=== PATIENT | male | born 1960 | race Caucasian/White ===

== ENCOUNTER 2017-10-01 18:48 | Emergency (ER) | payer BC, OTHER ==
[2017-10-01 18:59] VITALS: O2SAT 98
[2017-10-01] MEDS ORDERED: Sodium Chloride 0.9% 1000 ML 1,000 ML IV STA (19:09)
[2017-10-01] MEDS ORDERED: TORAdol 30 mg Injection IV ONE (19:09)
--- NOTE | 2017-10-01 19:09 | ERPHSYRPT ---
- History of Present Illness Time Seen by Provider: 10/01/17 19:06 Source: patient Exam Limitations: no limitations Patient Subjective Stated Complaint: Pt states "I am having horrible side pain. It hurt in my right testicle a little bit as well and my right back." Triage Nursing Assessment: Pt alert and oriented X 3, skin pwd. pt ambulates with an upright steady gait, able to speak in clear full sentences. Pt holding his right side, unable to sit still on the bed. Physician History: 57-year-old white male arrives with complaint of pain in his right flank radiating to his right groin symptoms since noon today. He does state that he had some dysuria no hematuria no nausea no vomiting. Past medical history is negative. Past surgical history is colonoscopy. Social history denies tobacco alcohol or illicit drug use. Timing/Duration: today Severity: moderate Modifying Factors: Improves With: nothing Associated Symptoms: abdominal pain (right lateral abdominal pain), No nausea, No vomiting, No shortness of breath, No heartburn, No diaphoresis, No cough, No chills, No chest pain, No fever, No headaches, No loss of appetite, No malaise, No rash, No syncope, No seizure Allergies/Adverse Reactions: No Known Drug Allergies Allergy (Verified 10/01/17 18:59) Hx Tetanus, Diphtheria Vaccination/Date Given: No Hx Influenza Vaccination/Date Given: No Hx Pneumococcal Vaccination/Date Given: No Immunizations Up to Date: Yes - Review of Systems Constitutional: No Fever, No Chills Eyes: No Symptoms Ears, Nose, & Throat: No Symptoms Respiratory: No Cough, No Dyspnea Cardiac: No Chest Pain, No Edema, No Syncope Abdominal/Gastrointestinal: Abdominal Pain (right lower abdominal pain) Genitourinary Symptoms: Dysuria, Flank Pain (Right flank pain), Testicle Pain Musculoskeletal: No Back Pain, No Neck Pain Skin: No Rash Neurological: No Dizziness, No Focal Weakness, No Sensory Changes Psychological: No Symptoms Endocrine: No Symptoms All Other Systems: Reviewed and Negative - Past Medical History Pertinent Past Medical History: No Neurological History: No Pertinent History ENT History: No Pertinent History Cardiac History: No Pertinent History Respiratory History: No Pertinent History Endocrine Medical History: No Pertinent History Musculoskeletal History: No Pertinent History GI Medical History: No Pertinent History History: No Pertinent History Psycho-Social History: No Pertinent History Male Reproductive Disorders: No Pertinent History - Past Surgical History Past Surgical History: No Neuro Surgical History: No Pertinent History Cardiac: No Pertinent History Respiratory: No Pertinent History Gastrointestinal: No Pertinent History Genitourinary: No Pertinent History Musculoskeletal: No Pertinent History Male Surgical History: No Pertinent History - Social History Smoking Status: Never smoker Exposure to second hand smoke: No Drug Use: none Patient Lives Alone: Yes - Nursing Vital Signs Nursing Vital Signs: Initial Vital Signs Temperature 98.0 F 10/01/17 18:54 Pulse Rate 66 10/01/17 18:54 Respiratory Rate 18 10/01/17 18:54 Blood Pressure 164/95 10/01/17 18:54 O2 Sat by Pulse Oximetry 98 10/01/17 18:54 Pain Scale Pain Intensity 4 - Physical Exam General Appearance: mild distress Eye Exam: PERRL/EOMI, eyes nml inspection Ears, Nose, Throat Exam: normal ENT inspection, TMs normal, pharynx normal, moist mucous membranes Neck Exam: normal inspection, non-tender, supple, full range of motion Respiratory Exam: normal breath sounds, lungs clear, No respiratory distress Cardiovascular Exam: regular rate/rhythm, normal heart sounds, normal peripheral pulses Gastrointestinal/Abdomen Exam: soft, normal bowel sounds, other (mild right lateral abdominal pian) Back Exam: CVA tenderness (Right flank tenderness) Extremity Exam: normal inspection, normal range of motion, pelvis stable Neurologic Exam: alert, oriented x 3, cooperative, creel clerk II-XII nml as tested, normal mood/affect, nml cerebellar function, nml station & gait, sensation nml, No motor deficits Skin Exam: normal color, warm, dry, No rash Lymphatic Exam: No adenopathy SpO2 Interpretation: normal (98%) SpO2: 98 Oxygen Delivery: Room Air - Course Nursing assessment & vital signs reviewed: Yes - CT Exams Abdomen/Pelvis CT Interpretation: Discussed w/radiologist (CT abdomen and pelvis: No comparisons. 2-3 cm posterior urinary bladder calculus with mild right sided hydronephrosis and minimal hydroureter from passage calculus. Additional 2-3 mm nonobstructing left renal calculus mild fatty liver and 14 cm splenomegaly) Ordered Tests: Active Orders 24 hr Category Date Time Status IV Insertion STAT Care 10/01/17 19:09 Active ABDOMEN AND PELVIS W/0 CONTRAS [CT] Stat Exams 10/01/17 19:09 Taken AMYLASE Stat Lab 10/01/17 19:30 Completed CBC W DIFF Stat Lab 10/01/17 19:30 Completed CMP Stat Lab 10/01/17 19:30 Completed LIPASE Stat Lab 10/01/17 19:30 Completed UA W/ MICROSCOPIC Stat Lab 10/01/17 20:19 Completed Medication Summary Discontinued Medications Generic Name Dose Route Start Last Admin Trade Name Ulises PRN Reason Stop Dose Admin Sodium Chloride 1,000 mls @ 999 mls/hr 10/01/17 19:09 10/01/17 19:37 Sodium Chloride 0.9% 1000 Ml IV 10/01/17 20:09 999 mls/hr .Q1H1M STA Administration Sodium Chloride Confirm 10/01/17 19:34 Sodium Chloride 0.9% 1000 Ml Administered 10/01/17 19:35 Dose 1,000 mls @ ud .ROUTE .STK-MED ONE Ketorolac Tromethamine 30 mg 10/01/17 19:09 10/01/17 19:37 Toradol 30 Mg Injection IV 10/01/17 19:10 30 mg STAT ONE Administration Ketorolac Tromethamine Confirm 10/01/17 19:34 Toradol 30 Mg Injection Administered 10/01/17 19:35 Dose 30 mg .ROUTE .STK-MED ONE Morphine Sulfate 4 mg 10/01/17 20:14 10/01/17 20:26 Morphine Sulfate 4 Mg Inj IV 10/01/17 20:15 4 mg STAT ONE Administration Morphine Sulfate Confirm 10/01/17 20:24 Morphine Sulfate 4 Mg Inj Administered 10/01/17 20:25 Dose 4 mg .ROUTE .STK-MED ONE Ondansetron HCl 4 mg 10/01/17 20:14 10/01/17 20:26 Zofran 4 Mg/2 Ml Vial IV 10/01/17 20:15 4 mg STAT ONE Administration Ondansetron HCl Confirm 10/01/17 20:24 Zofran 4 Mg/2 Ml Vial Administered 10/01/17 20:25 Dose 4 mg .ROUTE .STK-MED ONE Lab/Rad Data: Laboratory Result Diagrams 10/01/17 19:30 10/01/17 19:30 Laboratory Results 10/01/17 10/01/17 10/01/17 Range/Units 20:19 19:30 19:30 WBC 9.8 (4.0-10.5) K/mm3 RBC 5.45 (4.1-5.6) M/mm3 Hgb 16.2 (12.5-18.0) gm/dl Hct 46.7 (42-50) % MCV 85.7 (78-100) fl MCH 29.7 (26-32) pg MCHC 34.7 (32-36) g/dl RDW 13.8 (11.5-14.0) % Plt Count 218 (150-450) K/mm3 MPV 10.8 H (6-9.5) fl Gran % 78.4 H (36.0-66.0) % Eos # (Auto) 0.06 (0-0.5) Absolute Lymphs (auto) 1.32 (1.0-4.6) Absolute Monos (auto) 0.71 (0.0-1.3) Lymphocytes % 13.5 L (24.0-44.0) % Monocytes % 7.2 (0.0-12.0) % Eosinophils % 0.6 (0.00-5.0) % Basophils % 0.3 (0.0-0.4) % Absolute Granulocytes 7.69 H (1.4-6.9) Basophils # 0.03 (0-0.4) Sodium 138 (137-145) mmol/L Potassium 4.6 (3.5-5.1) mmol/L Chloride 103 (98-107) mmol/L Carbon Dioxide 26 (22-30) mmol/L Anion Gap 13.3 (5-15) MEQ/L BUN 12 (9-20) mg/dL Creatinine 0.78 (0.66-1.25) mg/dL Estimated GFR > 60.0 ML/MIN Glucose 130 H (74-106) mg/dL Calcium 9.6 (8.4-10.2) mg/dL Total Bilirubin 0.50 (0.2-1.3) mg/dL AST 23 (17-59) U/L ALT 48 (0-50) U/L Alkaline Phosphatase 91 (38-126) U/L Serum Total Protein 7.6 (6.3-8.2) g/dL Albumin 4.5 (3.5-5.0) g/dL Amylase 53 (30-110) U/L Lipase 27 (23-300) U/L Ur Collection Type VOID Urine Color YELLOW (YELLOW) Urine Appearance CLEAR (CLEAR) Urine pH 6.5 (5-6) Ur Specific [place] 1.015 (1.005-1.025) Urine Protein NEGATIVE (Negative) Urine Ketones NEGATIVE (NEGATIVE) Urine Blood 50 (0-5) Yun[place]/ul Urine Nitrite NEGATIVE (NEGATIVE) Urine Bilirubin NEGATIVE (NEGATIVE) Urine Urobilinogen NORMAL (0-1) mg/dL Ur Leukocyte Esterase NEGATIVE (NEGATIVE) Urine Microscopic RBC 5-10 (0-2) /HPF Urine Bacteria RARE (NEGATIVE) /HPF Urine Mucus SLIGHT (NEGATIVE) /HPF Urine Culture Reflexed NO (NO) Urine Glucose NEGATIVE (NEGATIVE) mg/dL Specimen Received 10/01/172024 - Progress Progress: improved Progress Note: 10/01/17 20:51 This is a 57-year-old white male with complaint of right flank right lower quadrant abdominal pain symptoms all day patient noted to have a 2-3 mm right posterior urinary bladder calculus with mild right-sided hydronephrosis and minimal hydroureter from recent passage calculus also with additional 2-3 mm nonobstructing left renal calculus mild fatty liver 14 cm splenomegaly Patient markedly improved after Toradol IV normal saline and morphine Will go ahead and release patient Will write for [place] for pain plenty of fluids strain urine, follow-up with Dr. Craig. Patient with splenomegaly will tell him no contact activity. . - Departure Time of Disposition: 20:53 Departure Disposition: Home Clinical Impression: Left flank pain, Splenomegaly Urolithiasis Qualifiers: Urinary calculus location: lower urinary tract Qualified Code(s): N21.9 - Calculus of lower urinary tract, unspecified Condition: Fair Critical Care Time: No Referrals: MANI VALDEZ [Primary Care Provider] - Instructions: Kidney Stones (DC) Additional Instructions: Return home. Plenty of fluids. [place] as prescribed. Strain all urine. Your spleen is somewhat enlarged no contact activities i.e. football wrestling. Follow-up with Dr. Craig. Return for acute distress or for severe symptoms. Prescriptions: Hydrocodone/Acetaminophen [[place] 5-325 Tablet] 1 tab PO Q4-6HPRN PRN #12 tablet MDD 6 tablets PRN Reason: Pain
[2017-10-01] MEDS ORDERED: Sodium Chloride 0.9% 1000 ML 1,000 ML ONE (19:34)
[2017-10-01] MEDS ORDERED: TORAdol 30 mg Injection ONE (19:34)
[2017-10-01 19:53] LABS: BASOPHIL % 0.3 % (0.0-0.4); Basophil (Absolute #) 0.03 (0-0.4); Eosinophil % 0.6 % (0.00-5.0); Eosinophil (Absolute #) 0.06 (0-0.5); Granulocyte Absolute (ANC) 7.69 (1.4-6.9); Granulocytes % 78.4 % (36.0-66.0); Hematocrit 46.7 % (42-50); Hemoglobin 16.2 gm/dl (12.5-18.0); Lymphocyte (Absolute #) 1.32 (1.0-4.6); Lymphocytes % 13.5 % (24.0-44.0); Mean Cell Volume 85.7 fl (78-100); Mean Corpuscular Hemoglobin 29.7 pg (26-32); Mean Corpuscular Hgb Concent. 34.7 g/dl (32-36); Mean Platelet Volume 10.8 fl (6-9.5); Monocyte (Absolute #) 0.71 (0.0-1.3); Monocytes % 7.2 % (0.0-12.0); Platelet Count 218 K/mm3 (150-450); Red Blood Count 5.45 M/mm3 (4.1-5.6); Red Cell Distribution Width 13.8 % (11.5-14.0); White Blood Count 9.8 K/mm3 (4.0-10.5)
[2017-10-01 19:59] LABS: ALBUMIN 4.5 g/dL (3.5-5.0); ALKALINE PHOSPHATASE 91 U/L (38-126); AMYLASE 53 U/L (30-110); ANION GAP 13.3 MEQ/L (5-15); BLOOD UREA NITROGEN 12 mg/dL (9-20); CHLORIDE 103 mmol/L (98-107); Calcium 9.6 mg/dL (8.4-10.2); Carbon Dioxide 26 mmol/L (22-30); Creatinine 1 0.78 mg/dL (0.66-1.25); Glucose 130 mg/dL (74-106); LIPASE 27 U/L (23-300); Potassium 4.6 mmol/L (3.5-5.1); SGOT/AST 23 U/L (17-59); SGPT/ALT 48 U/L (0-50); SODIUM 138 mmol/L (137-145); Total Protein 7.6 g/dL (6.3-8.2)
[2017-10-01] MEDS ORDERED: Zofran 4 MG/2 ML VIAL IV ONE (20:14)
[2017-10-01] MEDS ORDERED: MORPHINE SULFATE 4 MG INJ IV ONE (20:14)
[2017-10-01] MEDS ORDERED: Zofran 4 MG/2 ML VIAL ONE (20:24)
[2017-10-01] MEDS ORDERED: MORPHINE SULFATE 4 MG INJ ONE (20:24)
[2017-10-01 20:29] LABS: Appearance CLEAR (CLEAR); Bilirubin NEGATIVE (NEGATIVE); Blood 50 Ery/ul (0-5); Glucose NEGATIVE (NEGATIVE); Ketones NEGATIVE (NEGATIVE); Leukocyte Esterase NEGATIVE (NEGATIVE); Nitrite NEGATIVE (NEGATIVE); Ph 6.5 (5-6); Protein,Urine Dip NEGATIVE (Negative); Specific Gravity 1.015 (1.005-1.025); Urobilinogen NORMAL mg/dL (0-1)
[2017-10-01 20:47] LABS: Bacteria RARE /HPF (NEGATIVE); Mucus SLIGHT /HPF (NEGATIVE)
[2017-10-01 21:12] VITALS: BP 134/78; PULSE 65
--- NOTE | 2017-10-02 08:36 | XRAY ---
Indication: Right flank pain. Multiple contiguous axial images obtained through the abdomen and pelvis without contrast using renal stone protocol. Comparison: None Lung bases demonstrates left infrahilar and left posterior calcified granulomas. No infiltrate or effusion. Heart is not enlarged. 2-3 mm calculus seen in the posterior right urinary bladder. Right kidney is mildly hydronephrotic and right ureter is slightly prominent consistent with recent passage of said calculus. Additional nonobstructing left renal micro-calculus. Noncontrasted stomach and bowel loops appear nonobstructed. Normal appendix. No free fluid/air. Mild fatty liver, calcified splenic granulomas, and 14 cm splenomegaly. Remaining liver, gallbladder, pancreas, spleen, adrenal glands, kidneys, ureters, and bladder appear unremarkable for noncontrast exam. Mild aortoiliac calcifications without AAA. Osseous structures intact with mild degenerative changes throughout the spine greatest at the L4-L5 level. Tiny fatty umbilical and left inguinal hernias. 2 cm sebaceous cyst posterior to the T11-T12 level. Impression: 1. 2-3 mm urinary bladder calculus with mild right hydronephrosis and minimal hydroureter. Nonobstructing left renal micro-calculus. 2. Incidental fatty liver, splenomegaly, fatty umbilical hernia, fatty left inguinal hernia, lower back sebaceous cyst, and evidence for old granulomatous disease. CT DI 34.71
== END 2017-10-01 21:12 | disposition home or self-care (01) ==
LOC: ED 18:48
DX: N13.2 Hydronephrosis with renal and ureteral calculous obstruction (principal); R10.31 Right lower quadrant pain; R16.1 Splenomegaly, not elsewhere classified
CPT/HCPCS: 36000; 36415; 74176; 80053; 81000; 82150; 83690; 85025; 96360; 96374; 96375; 99284; J1885; J2270; J2405

== ENCOUNTER 2019-11-19 14:19 | Emergency (ER) | payer OTHER ==
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
[2019-11-19 15:24] VITALS: BP 140/80; PULSE 72; O2SAT 98
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
== END 2019-11-19 16:22 | disposition home or self-care (01) ==
LOC: ED 14:19
DX: S62.307A Unspecified fracture of fifth metacarpal bone, left hand, initial encounter for closed fracture (principal); V89.2XXA Person injured in unspecified motor-vehicle accident, traffic, initial encounter
CPT/HCPCS: 29126; 73130; 99284